=== PATIENT | female | born 1960 | race Caucasian/White ===

== ENCOUNTER 2019-11-02 21:44 | Emergency (ER) | payer SELFPAY ==
[2019-11-02] MEDS ORDERED: ACETAMINOPHEN 325 MG TAB PO ONE (22:00)
[2019-11-02 22:13] LABS: BASOPHILS % 0.2 % (0.0-1.0); EOSINOPHILS % 0.4 % (0.0-6.0); HEMATOCRIT 39.6 % (34.2-44.1); HEMOGLOBIN 13.2 g/dL (12.0-16.0); LYMPHOCYTES # (AUTO) 1.6 (1.0-3.2); LYMPHOCYTES % 28.9 % (18.0-39.1); MEAN CORPUSCULAR HEMOGLOBIN 30.3 pg (28-32); MEAN CORPUSCULAR HGB CONC 33.3 g/dL (31-35); MEAN CORPUSCULAR VOLUME 90.8 fL (81-99); MONOCYTES # (AUTO) 0.4 (0.2-0.8); MONOCYTES % 6.4 % (4.4-11.3); NEUTROPHILS # (AUTO) 3.5 (2.1-6.9); NEUTROPHILS % 63.9 % (38.7-80.0); PLATELET COUNT 277 x10e3/uL (140-360); RED BLOOD COUNT 4.36 x10e6/uL (3.6-5.1); RED CELL DISTRIBUTION WIDTH 12.4 % (11.7-14.4)
[2019-11-02 22:31] LABS: ALANINE AMINOTRANSFERASE 47 IU/L (0-55); ALBUMIN 3.8 g/dL (3.5-5.0); ALBUMIN/GLOBULIN RATIO 0.9 (0.8-2.0); ALKALINE PHOSPHATASE 86 IU/L (40-150); ANION GAP 16.5 mmol/L (8-16); BLOOD UREA NITROGEN 16 mg/dL (7-26); BUN/CREATININE RATIO 14 (6-25); CALCIUM 9.2 mg/dL (8.4-10.2); CARBON DIOXIDE 22 mmol/L (22-29); CHLORIDE 108 mmol/L (98-107); CREATINE KINASE 56 IU/L (29-168); CREATININE, SERUM 1.11 mg/dL (0.57-1.11); EST GLOMERULAR FILTRATION RATE 50 ML/MIN (60-); GLUCOSE 146 mg/dL (74-118); POTASSIUM 3.5 mmol/L (3.5-5.1); SODIUM 143 mmol/L (136-145)
--- NOTE | 2019-11-02 23:19 | Emergency Department Note ---
History of Present Illnes History of Present Illness Chief Complaint: COVID PUI History of Present Illness This is a 59 year old female started coughing last Friday and got tested with Covid19 at [facility] pharmacy last Friday with result still pending. Today started to have fever, SOB & palpitation at home. . Historian: Patient Arrival Mode: Car Onset (how long ago): day(s) (5) Location: CHEST Quality: COUGH, PALPITATIONS, SOB, FEVER CHILLS Radiation: Reports non-radiation Severity: mild Onset quality: gradual Duration (how long): day(s) (5) Timing of current episode: constant Progression: worsening Chronicity: new Context: Reports recent illness ( ABOVE) Relieving factors: none Exacerbating factors: none Associated symptoms: Reports denies other symptoms Treatments prior to arrival: none Past Medical/Family History Physician Review I have reviewed the patient's past medical and family history. Any updates have been documented here. Past Medical History Recent Fever: Yes Clinical Suspicion of Infectio: Yes New/Unexplained Change in Ment: No Past Medical History: Hypertension Past Surgical History: None Social History Counseling Performed: No Alcohol Use: None Any Illegal Drug Use: No Family History Family history of heart diseas: No Other Any Pre-Existing Lines (PICC,: No Review of Systems Review of Systems Constitutional: Reports as per HPI EENTM: Reports no symptoms Cardiovascular: Reports as per HPI Respiratory: Reports as per HPI Gastrointestinal: Reports no symptoms Genitourinary: Reports no symptoms Musculoskeletal: Reports no symptoms Integumentary: Reports no symptoms Neurological: Reports no symptoms Psychological: Reports no symptoms Endocrine: Reports no symptoms Hematological/Lymphatic: Reports no symptoms Physical Exam Related Data Triage Vital Signs Vital Signs Date Time Temp Pulse Resp B/P (MAP) Pulse Ox O2 Delivery O2 Flow Rate FiO2 11/02/19 22:00 101.2 122 16 147/78 98 Room Air Vital signs reviewed: Yes Physical Exam CONSTITUTIONAL Constitutional: Present well-developed, Present well-nourished HENT HENT: Present normocephalic, Present atraumatic, Present oropharynx clear/moist, Present nose normal HENT L/R: Present left ext ear normal, Present right ext ear normal EYES Eyes: Reports PERRL, Reports conjunctivae normal NECK Neck: Present ROM normal PULMONARY Pulmonary: Present effort normal, Present breath sounds normal CARDIOVASCULAR Cardiovascular: Present regular rhythm, Present heart sounds normal, Present capillary refill normal, Present tachycardia (112) GASTROINTESTINAL Abdominal: Present soft, Present nontender, Present bowel sounds normal GENITOURINARY Genitourinary: Present exam deferred SKIN Skin: Present warm, Present dry MUSCULOSKELETAL Musculoskeletal: Present ROM normal NEUROLOGICAL Neurological: Present alert, Present oriented x 3, Present no gross motor or sensory deficits PSYCHOLOGICAL Psychological: Present mood/affect normal, Present judgement normal Results Laboratory Result Diagram: 11/02/19220511/02/192205 Laboratory Laboratory Tests Test 11/02/19 22:06 White Blood Count 5.46 x10e3/uL (4.8-10.8) Red Blood Count 4.36 x10e6/uL (3.6-5.1) Hemoglobin 13.2 g/dL (12.0-16.0) Hematocrit 39.6 % (34.2-44.1) Mean Corpuscular Volume 90.8 fL (81-99) Mean Corpuscular Hemoglobin 30.3 pg (28-32) Mean Corpuscular Hemoglobin Concent 33.3 g/dL (31-35) Red Cell Distribution Width 12.4 % (11.7-14.4) Platelet Count 277 x10e3/uL (140-360) Neutrophils (%) (Auto) 63.9 % (38.7-80.0) Lymphocytes (%) (Auto) 28.9 % (18.0-39.1) Monocytes (%) (Auto) 6.4 % (4.4-11.3) Eosinophils (%) (Auto) 0.4 % (0.0-6.0) Basophils (%) (Auto) 0.2 % (0.0-1.0) Neutrophils # (Auto) 3.5 (2.1-6.9) Lymphocytes # (Auto) 1.6 (1.0-3.2) Monocytes # (Auto) 0.4 (0.2-0.8) Eosinophils # (Auto) 0.0 (0.0-0.4) Basophils # (Auto) 0.0 (0.0-0.1) Absolute Immature Granulocyte (auto 0.01 x10e3/uL (0-0.1) Sodium Level 143 mmol/L (136-145) Potassium Level 3.5 mmol/L (3.5-5.1) Chloride Level 108 mmol/L (98-107) Carbon Dioxide Level 22 mmol/L (22-29) Anion Gap 16.5 mmol/L (8-16) Blood Urea Nitrogen 16 mg/dL (7-26) Creatinine 1.11 mg/dL (0.57-1.11) Estimat Glomerular Filtration Rate 50 ML/MIN (60-) BUN/Creatinine Ratio 14 (6-25) Glucose Level 146 mg/dL (74-118) Calcium Level 9.2 mg/dL (8.4-10.2) Total Bilirubin 0.3 mg/dL (0.2-1.2) Aspartate Amino Transf (AST/SGOT) 36 IU/L (5-34) Alanine Aminotransferase (ALT/SGPT) 47 IU/L (0-55) Alkaline Phosphatase 86 IU/L (40-150) Creatine Kinase 56 IU/L (29-168) Creatine Kinase MB 0.40 ng/mL (0-5.0) Troponin I < 0.001 ng/mL (0-0.300) Total Protein 8.0 g/dL (6.5-8.1) Albumin 3.8 g/dL (3.5-5.0) Globulin 4.2 g/dL (2.3-3.5) Albumin/Globulin Ratio 0.9 (0.8-2.0) Lab results reviewed: Yes Imaging Imaging results reviewed: Yes Impressions Patient Name: JOSE ALFREDO MARION MR #: [id number] : 1960 Age/Sex: 59/F Req #: [id number] Adm Physician: Ordered by: JOSE LEVIN MD Report #: [id number] Location: ER Room/Bed: Procedure: [id number] DX/CHEST SINGLE (PORTABLE) Exam Date: 11/02/19 Exam Time: 2232 REPORT STATUS: Signed EXAMINATION: CHEST SINGLE (PORTABLE) INDICATION: COVID SYMPTOMS, PALPITATIONS COMPARISON: None FINDINGS: The heart size and pulmonary vasculature are normal. Patchy and strandy left basilar opacity. The right lung is clear. No pleural effusion. No pneumothorax. IMPRESSION: Left base pneumonia or atelectasis. Radiographic follow-up in 6-8 weeks is recommended to document resolution. Signed by: Chas Brooks MD on 11/02/2019 11:24 PM Dictated By: CHAS BROOKS MD 23 Transcribed By: YANA on 11/02/192323 COPY TO: JOSE LEVIN MD~ Procedures 12 Lead ECG Interpretation ECG Interpretation : ECG: ECG 1 Technologist Infectious Disease: Interpreted by ED physician Date: Nov 02, 2019 Time: 22:12 Rhythm: sinus tachycardia Rate: tachycardia BPM: 114 QRS axis: normal ST segments normal: Yes T waves normal: Yes Other findings: no other findings Clinical Impression: non-specific ECG Assessment & Plan Medical Decision Making MDM PT WITH COVID SYMPTOMS AND PALPITATIONS TONIGHT, NOTED TO HAVE FEVER ON ARRIVAL CBC, CMP, EKG, CARDIAC ENZYMES, CXR ORDERED TO EVAL FOR VIRAL PNEUMONIA, ELECTROLYTE ABNORMALITY, MYOCARDIAL INFARCTION, ARRHYTHMIA TYLENOL 975 MG PO ORDERED CXR SHOWS A LEFT BASILAR INFILTRATE BUT PT DOES NOT HAVE A WHITE COUNT. I AM STILL SUSPICIOUS OF COVID 19 BUT WILL COVER PT FOR BACTERIAL PNEUMONIA DISCHARGED HOME WITH [facility] DIRECTED #1. OMNICEF 300 MG PO BID FOR 10 DAYS #20. INSTRUCTED PT TO SELF QUARANTINE FOR 14 DAYS, PT IS AWAITING RESULTS OF COVID TEST DONE AT [facility] Reassessment Reassessment time: 23:36 Reassessment TEMP 99.7, O2 96% ON ROOM AIR, HEART RATE 102 Assessment & Plan Final Impression: (1) Pneumonia (2) Suspected COVID-19 virus infection (3) Fever Depart Disposition: HOME, SELF-CARE Last Vital Signs Date Time Temp Pulse Resp B/P (MAP) Pulse Ox O2 Delivery O2 Flow Rate FiO2 11/02/19 22:00 101.2 122 16 147/78 98 Room Air Medications in the ED Acetaminophen 975 mg ONCE ONCE PO Last administered on 11/02/19at 22:08; Admin Dose 975 MG; Start 11/02/19 at 22:00; Stop 11/02/19 at 22:14; Status DC JOSE LEVIN MD Nov 02, 2019 23:19
--- NOTE | 2019-11-02 23:27 | Diagnostic Imaging Report ---
EXAMINATION: CHEST SINGLE (PORTABLE) INDICATION: COVID SYMPTOMS, PALPITATIONS COMPARISON: None FINDINGS: The heart size and pulmonary vasculature are normal. Patchy and strandy left basilar opacity. The right lung is clear. No pleural effusion. No pneumothorax. IMPRESSION: Left base pneumonia or atelectasis. Radiographic follow-up in 6-8 weeks is recommended to document resolution. Signed by: Lowell Collado MD on 11/02/2019 11:24 PM
[2019-11-02 23:46] VITALS: BP 132/74
== END 2019-11-02 23:56 | disposition home or self-care (01) ==
LOC: ER 22:00
DX: R50.9 Fever, unspecified (principal); J18.9 Pneumonia, unspecified organism; R05 Cough; I10 Essential (primary) hypertension
CPT/HCPCS: 36415; 71045; 80053; 82550; 82553; 84484; 85025; 99284